=== PATIENT | male | born 2000 | race Caucasian/White ===

== ENCOUNTER 2021-10-26 21:23 | Emergency (ER) | payer BC, OTHER ==
[~2021-10-26] VITALS: Ht 172.7 cm; Wt 68.0 kg
[2021-10-26 21:42] LABS: BILIRUBIN,URINE NEGATIVE (NEGATIVE); CLARITY,URINE CLOUDY; COLOR,URINE RED; GLUCOSE, URINE (UA) NEGATIVE (NEGATIVE); KETONES,URINE NEGATIVE (NEGATIVE); LEUKOCYTE ESTERASE ,URINE NEGATIVE (NEGATIVE); NITRITE,URINE NEGATIVE (NEGATIVE); PH,URINE 8.5 (5-9); PROTEIN,URINE TRACE (NEGATIVE)
[2021-10-26] MEDS ORDERED: NS IV 1000 ML 1,000 ML IV STA (21:46)
--- NOTE | 2021-10-26 21:55 | ED GU-Male ---
General Chief Complaint: - Reproductive Stated Complaint: BLOOD IN URINE Nursing Triage Note: PT AMB TO RM 5 W REPORTS OF BLOOD IN URINE SX YESTERDAY MORNING. PT DENIES PAIN AT THIS TIME, REPORTS HE HAD A MILD ACHE IN LEFT FLANK ON AND OFF YESTERDAY. A&OX4. Source: patient Exam Limitations: no limitations History of Present Illness Date Seen by Provider: Oct 26, 2021 Time Seen by Provider: 21:40 Initial Comments Here with report of blood in his urine since this morning. He did have some left flank pain intermittently yesterday. Father has history of kidney stones. He has not had anything like this before. Denies fever chills or other injuries that would cause blood in his urine. This persisted so they came here for further evaluation. He has not had anything for pain nor wants anything currently as his pain is not noticeable currently. Timing/Duration: yesterday, getting worse, intermittent Severity/Quality: mild, aching Location: left flank Radiation: none Activities at Onset: none Sexual [place] History: not active Modifying Factors: Improves With Resting; Worsens With Urinating Associated Symptoms: No abdominal pain, No dysuria, No fever/chills, No nausea/vomiting, No urinary frequency Allergies and Home Medications Allergies Coded Allergies: No Known Drug Allergies (Unverified , 10/26/21) Patient Home Medication List Home Medication List Reviewed: Yes Cephalexin (Cephalexin) 500 Mg Tablet, 500 MG PO BID Prescribed by: OVIDIO HUSAIN on 10/26/21 8489 Tamsulosin HCl (Flomax) 0.4 Mg Cap, 0.4 MG PO DAILY Prescribed by: OVIDIO HUSAIN on 10/26/21 5727 Review of Systems Review of Systems Constitutional: see HPI; No chills, No fever EENTM: No nose congestion, No throat pain Respiratory: No cough, No short of breath Cardiovascular: no symptoms reported Gastrointestinal: No nausea, No vomiting Genitourinary: flank pain, hematuria Musculoskeletal: no symptoms reported Skin: no symptoms reported All Other Systemes Reviewed Negative Unless Noted: Yes Past Zylypcz-Xzptbu-Bhsqor Hx Patient Social History Tobacco Use?: No Use of E-Cig and/or Vaping dev: No Substance use?: No Alcohol Use?: No Immunizations Up To Date Influenza Vaccine Up-to-Date: No; Not Current First/Initial COVID19 Vaccinat: NONE Second COVID19 Vaccination Noe: NONE Third COVID19 Vaccination Date: NONE COVID19 Vaccine Oyster Cultivator: NONE Past Medical History Surgeries: No Respiratory: No Cardiac: No Neurological: No Genitourinary: No Gastrointestinal: No Family Medical History Reviewed Nursing Family Hx Other Conditions/Hx (Kidney stones) Physical Exam Vital Signs Vital Signs - First Documented 10/26/21 21:30 Temp 36.5 Pulse 62 Resp 20 B/P (MAP) 141/86 (104) Pulse Ox 100 O2 Delivery Room Air Capillary Refill : Less Than 3 Seconds Height, Weight, BMI Height: '" Weight: lbs. oz. kg; 22.00 BMI Method: General Appearance: WD/WN, no apparent distress HEENT: PERRL/EOMI, pharynx normal Neck: full range of motion, supple Cardiovascular: regular rate, rhythm, no murmur Respiratory: lungs clear, normal breath sounds, no respiratory distress Gastrointestinal: non tender, soft Back: normal inspection, no CVA tenderness, no vertebral tenderness Neurologic/Psychiatric: alert, oriented x 3 Skin: normal color, warm/dry Progress/Results/Core Measures Suspected Sepsis SIRS Temperature: Pulse: 62 Respiratory Rate: 20 Laboratory Tests 10/26/21 21:50: White Blood Count 7.3 Blood Pressure 141 /86 Mean: 104 Laboratory Tests 10/26/21 21:50: Creatinine 0.87, Platelet Count 190, Total Bilirubin 0.9 Results/Orders Lab Results Laboratory Tests Test 10/26/21 21:30 10/26/21 21:50 Range/Units Urine Color RED H Urine Clarity CLOUDY Urine pH 8.5 5-9 Urine Specific [place] 1.020 1.016-1.022 Urine Protein TRACE H NEGATIVE Urine Glucose (UA) NEGATIVE NEGATIVE Urine Ketones NEGATIVE NEGATIVE Urine Nitrite NEGATIVE NEGATIVE Urine Bilirubin NEGATIVE NEGATIVE Urine Urobilinogen 1.0 < = 1.0 MG/DL Urine Leukocyte Esterase NEGATIVE NEGATIVE Urine RBC (Auto) 3+ H NEGATIVE Urine RBC >100 H /HPF Urine WBC 0-2 /HPF Urine Crystals PRESENT H /LPF Urine Amorphous Sediment FEW MARGARITO PHOSPHATE H /LPF Urine Bacteria NEGATIVE /HPF Urine Casts NONE /LPF Urine Mucus NEGATIVE /LPF Urine Culture Indicated NO White Blood Count 7.3 4.3-11.0 10^3/uL Red Blood Count 5.00 4.30-5.52 10^6/uL Hemoglobin 15.3 13.3-17.7 g/dL Hematocrit 45 40-54 % Mean Corpuscular Volume 89 80-99 fL Mean Corpuscular Hemoglobin 31 25-34 pg Mean Corpuscular Hemoglobin Concent 34 32-36 g/dL Red Cell Distribution Width 11.9 10.0-14.5 % Platelet Count 190 130-400 10^3/uL Mean Platelet Volume 12.0 9.0-12.2 fL Immature Granulocyte % (Auto) 0 % Neutrophils (%) (Auto) 49 42-75 % Lymphocytes (%) (Auto) 41 12-44 % Monocytes (%) (Auto) 9 0-12 % Eosinophils (%) (Auto) 1 0-10 % Basophils (%) (Auto) 1 0-10 % Neutrophils # (Auto) 3.5 1.8-7.8 10^3/uL Lymphocytes # (Auto) 3.0 1.0-4.0 10^3/uL Monocytes # (Auto) 0.6 0.0-1.0 10^3/uL Eosinophils # (Auto) 0.1 0.0-0.3 10^3/uL Basophils # (Auto) 0.1 0.0-0.1 10^3/uL Immature Granulocyte # (Auto) 0.0 0.0-0.1 10^3/uL Sodium Level 140 135-145 MMOL/L Potassium Level 4.0 3.6-5.0 MMOL/L Chloride Level 104 98-107 MMOL/L Carbon Dioxide Level 23 21-32 MMOL/L Anion Gap 13 5-14 MMOL/L Blood Urea Nitrogen 9 7-18 MG/DL Creatinine 0.87 0.60-1.30 MG/DL Estimat Glomerular Filtration Rate 127 BUN/Creatinine Ratio 10 Glucose Level 85 70-105 MG/DL Calcium Level 10.0 8.5-10.1 MG/DL Corrected Calcium 8.5-10.1 MG/DL Total Bilirubin 0.9 0.1-1.0 MG/DL Aspartate Amino Transf (AST/SGOT) 18 5-34 U/L Alanine Aminotransferase (ALT/SGPT) 14 0-55 U/L Alkaline Phosphatase 93 40-136 U/L Total Protein 7.9 6.4-8.2 GM/DL Albumin 4.9 H 3.2-4.5 GM/DL My Orders Orders - RODRIGUE,OVIDIO D MD Cbc With Automated Diff (10/26/21 21:46) Comprehensive Metabolic Panel (10/26/21 21:46) Ct Abd/Pelvis Wo(Kidney Stone) (10/26/21 21:46) Ns Iv 1000 Ml (Sodium Chloride 0.9%) (10/26/21 21:46) Ed Iv/Invasive Line Start (10/26/21 21:46) Abdomen/Kub 1view (10/26/21 23:17) Vital Signs/I&O 10/26/21 21:30 Temp 36.5 Pulse 62 Resp 20 B/P (MAP) 141/86 (104) Pulse Ox 100 O2 Delivery Room Air Capillary Refill : Less Than 3 Seconds Blood Pressure Mean: 104 Progress Note : Progress Note Seen and evaluated. IV and labs ordered. Normal saline 1 L bolus. Patient declined pain medicine. We will get CT abdomen of the pelvis to evaluate for hematuria with concerns towards kidney stone. Monitor patient. 2315: CT does show kidney stone. We will get KUB per urology protocol. Pain is still contro lled without pain reliever. I did discuss with him regarding follow-up. Discharged home with return precautions. Patient and family verbalized understanding instructions and agreement with plan. Diagnostic Imaging Diagonstic Imaging: CT Plain Films/CT/US/NM/MRI: abdomen, pelvis Comments [facility]. [place], [place] NAME: AUSTIN MARTIN [facility] REC#: [id number] PT STATUS: REG ER : 2000 PHYSICIAN: OVIDIO HUSAIN MD ADMIT DATE: 10/26/21/ER Signed Date of Exam:10/26/21 CT ABD/PELVIS WO(KIDNEY STONE) PROCEDURE: CT urinary tract, rule out kidney stone. TECHNIQUE: Multiple contiguous axial images were obtained through the abdomen and pelvis without the use of intravenous contrast. Auto Exposure Controls were utilized during the CT exam to meet ALARA standards for radiation dose reduction. INDICATION: Flank pain, hematuria COMPARISON: None available. FINDINGS: The visualized lung bases are clear. The unenhanced liver and spleen are unremarkable. The adrenal glands are unremarkable. Pancreas is unremarkable. The gallbladder is unremarkable. The right kidney and right ureter are unremarkable. A 5 mm calculus is noted within the left ureteropelvic junction. No significant hydronephrosis. The remainder of the left ureter is unremarkable. No aneurysmal dilatation of the abdominal aorta. The urinary bladder is unremarkable. No bowel obstruction or pneumatosis. No evidence of acute appendicitis. No significant adenopathy, free air or free fluid within the abdomen or pelvis. No acute osseous abnormality. IMPRESSION: 1. 5 mm calculus within the left ureteropelvic junction without definitive hydronephrosis. 2. Otherwise, unremarkable examination. Dictated by: Dictated on workstation # [id number] Dict: 10/26/212229 Trans: 10/26/212236 [id number] Interpreted by: ERIBERTO TOSCANO MD Electronically signed by: ERIBERTO TOSCANO MD 10/26/212236 Departure Impression Primary Impression: Left ureteral stone Additional Impression: Hematuria Qualified Codes: R31.0 - Gross hematuria Disposition: HOME, SELF-CARE Condition: Improved Departure-Patient Inst. Decision time for Depature: 23:31 Referrals: NO,LOCAL PHYSICIAN (PCP) Primary Care Physician HENRY RODRIGUEZ MD Patient Instructions: Kidney Stone, Adult ED, Blood in the Urine (Hematuria), Adult (DC) Add. Discharge Instructions: All discharge instructions reviewed with patient and/or family. Voiced understanding. Drink plenty of fluids. Follow-up with Dr. Rodriguez for recheck and further evaluation. Strain urine with every urination until stone captured. You may take ibuprofen 600 mg every 8 hours as needed for pain. You may also take Tylenol/acetaminophen 1000 mg every 8 hours as needed for pain. Take your medications as directed. Return for worse pain, grossly bloody urine, fever, weakness, breathing problems or other concerns as needed. Scripts Tamsulosin HCl (Flomax) 0.4 Mg Cap 0.4 MG PO DAILY for 14 Days, #14 CAP Prov: OVIDIO HUSAIN MD 10/26/21 Cephalexin (Cephalexin) 500 Mg Tablet 500 MG PO BID, #14 TAB 0 Refills Prov: OVIDIO HUSAIN MD 10/26/21 Copy Copies To 1: HENRY RODRIGUEZ MD, TIMOTHY D MD Oct 26, 2021 21:55
[2021-10-26 21:58] LABS: BASOPHILS # (AUTO) 0.1 10^3/uL (0.0-0.1); BASOPHILS % (AUTO) 1 % (0-10); EOSINOPHILS # (AUTO) 0.1 10^3/uL (0.0-0.3); EOSINOPHILS % (AUTO) 1 % (0-10); HEMATOCRIT 45 % (40-54); HEMOGLOBIN 15.3 g/dL (13.3-17.7); LYMPHOCYTES % (AUTO) 41 % (12-44); MEAN CORPUSCULAR HEMOGLOBIN 31 pg (25-34); MEAN CORPUSCULAR HGB CONC 34 g/dL (32-36); MEAN CORPUSCULAR VOLUME 89 fL (80-99); MONOCYTES # (AUTO) 0.6 10^3/uL (0.0-1.0); MONOCYTES % (AUTO) 9 % (0-12); NEUTROPHILS # (AUTO) 3.5 10^3/uL (1.8-7.8); NEUTROPHILS % (AUTO) 49 % (42-75); PLATELET COUNT 190 10^3/uL (130-400); WHITE BLOOD COUNT 7.3 10^3/uL (4.3-11.0)
[2021-10-26 21:59] LABS: AMORPHOUS SEDIMENT,UR FEW AMOR PHOSPHATE /LPF; BACTERIA,URINE NEGATIVE /HPF; RBC,URINE >100 /HPF; WBC,URINE 0-2 /HPF
[2021-10-26 22:09] LABS: ALBUMIN 4.9 GM/DL (3.2-4.5); CHLORIDE 104 MMOL/L (98-107); SODIUM 140 MMOL/L (135-145)
[2021-10-26 22:11] LABS: GLUCOSE 85 MG/DL (70-105); TOTAL PROTEIN 7.9 GM/DL (6.4-8.2)
[2021-10-26 22:12] LABS: CARBON DIOXIDE 23 MMOL/L (21-32)
[2021-10-26 22:13] LABS: BILIRUBIN,TOTAL 0.9 MG/DL (0.1-1.0)
[2021-10-26 22:15] LABS: ALKALINE PHOSPHATASE 93 U/L (40-136); CREATININE SERUM 0.87 MG/DL (0.60-1.30); GFR ESTIMATED 127
[2021-10-26 22:16] LABS: BUN/CREATININE RATIO 10
[2021-10-26 22:18] LABS: ALANINE AMINOTRANSFERASE 14 U/L (0-55)
--- NOTE | 2021-10-26 22:35 | Diagnostic Imaging Report ---
PROCEDURE: CT urinary tract, rule out kidney stone. TECHNIQUE: Multiple contiguous axial images were obtained through the abdomen and pelvis without the use of intravenous contrast. Auto Exposure Controls were utilized during the CT exam to meet ALARA standards for radiation dose reduction. INDICATION: Flank pain, hematuria COMPARISON: None available. FINDINGS: The visualized lung bases are clear. The unenhanced liver and spleen are unremarkable. The adrenal glands are unremarkable. Pancreas is unremarkable. The gallbladder is unremarkable. The right kidney and right ureter are unremarkable. A 5 mm calculus is noted within the left ureteropelvic junction. No significant hydronephrosis. The remainder of the left ureter is unremarkable. No aneurysmal dilatation of the abdominal aorta. The urinary bladder is unremarkable. No bowel obstruction or pneumatosis. No evidence of acute appendicitis. No significant adenopathy, free air or free fluid within the abdomen or pelvis. No acute osseous abnormality. IMPRESSION: 1. 5 mm calculus within the left ureteropelvic junction without definitive hydronephrosis. 2. Otherwise, unremarkable examination. Dictated by: Dictated on workstation # [id number]
[2021-10-26] MEDS ORDERED: TMSL.4C PO (23:35)
[2021-10-26] MEDS ORDERED: CEPH500T PO (23:35)
[2021-10-26 23:58] VITALS: BP 123/72
--- NOTE | 2021-10-27 07:48 | Diagnostic Imaging Report ---
INDICATION: Left flank pain, abdominal pain. TECHNIQUE: Single supine view of the abdomen 11:34 PM CORRELATION STUDY: None FINDINGS: There is gas within loops of small bowel as well as colon. Currently nonspecific. Mild stool retention. No definitive pathologic intraabdominal calcifications but smaller calcifications could easily go undetected on this study. Visualized osseous structures are unremarkable apart from spina bifida occulta defect at S1. IMPRESSION: 1. Diffuse mild gas distention throughout the majority of the gastrointestinal tract. Could reflect potential ileus. High degree obstruction does not produce suggested. The known left UPJ calcification is not visualized on this study, likely obscured by the bowel gas. Dictated by: Dictated on workstation # [id number]
== END 2021-10-26 23:58 | disposition home or self-care (01) ==
LOC: ER 21:27
DX: N20.1 Calculus of ureter (principal)
CPT/HCPCS: 36415; 74018; 74176; 80053; 81000; 85025; 96360; 96361

== ENCOUNTER 2021-12-03 13:51 | Emergency (ER) | payer BC ==
[~2021-12-03] VITALS: Ht 172 cm; Wt 63.0 kg
[~2021-12-03 13:51] MED LIST: CEPH500T PO; TMSL.4C PO
[2021-12-03 14:00] VITALS: BP 138/60
--- NOTE | 2021-12-03 14:25 | ED Back Pain ---
General Chief Complaint: General Problems/Pain Stated Complaint: BACK PAIN / VOMITING Nursing Triage Note: ARRIVED VIA AMB TO ROOM 09 WITH COMPLAINTS OF SEVERE RIGHT SIDED FLANK PAIN THIS MORNING THAT WAS RELIEVED AFTER HE VOMITED. DENIES PAIN OR NAUSEA AT THIS TIME. RECENT HX OF A KIDNEY STONE. Source of Information: Patient Exam Limitations: No Limitations (RACHID CANO MED STUDENT) History of Present Illness Date Seen by Provider: Dec 03, 2021 Time Seen by Provider: 14:20 Initial Comments Mr Castro is a 20 yo male with PMH of kidney stones 3 weeks ago that presents today for L Lateral lumbar back pain and vomiting. He states that the pain started this morning and he was not able to get comfortable in bed. He states the pain began to get a lot worse when he got up and started walking around. He tried to take some ibuprofen for the pain but he threw up a little after taking it. He has only had the single episode of emesis. He was in the ED about 3 weeks ago and was noted to have a 5mm stone on CT. At the time he did not have any pain but was having philly hematuria. He states that he didn't have nay pain last time so this time is a bit different. He was given a strainer to urinate through and states that the only thing he got was a little bit of sediment, not a true stone. As far as he knows he isnt 100% sure it is passed. He has been urinating about the same amount as usual as far as he can tell. Does not report any other symptoms other than the ones described above. ROS + Vomiting, L sided Flank pain - Fever, chill, headache, vision changes, nausea, chest pain, palpatations, SOB, abdominal pain, Changes in bowel or bladder function, rashes, or swelling (RACHID CANO MED STUDENT) Allergies and Home Medications Allergies Coded Allergies: No Known Drug Allergies (Unverified , 10/26/21) Patient Home Medication List Home Medication List Reviewed: Yes (YOCASTA CASON MD) Cephalexin (Cephalexin) 500 Mg Tablet, 500 MG PO BID Prescribed by: OVIDIO HUSAIN on 10/26/21 1475 Cephalexin (Cephalexin) 500 Mg Tablet, 500 MG PO BID Prescribed by: YOCASTA SHORT on 12/03/21 1626 Hydrocodone/Acetaminophen (Hydrocodone-Acetamin 5-325 mg) 1 Each Tablet, 1 TAB PO Q4H PRN for PAIN-MODERATE (5-7) Prescribed by: YOCASTA SHORT on 12/03/21 162 Ondansetron (Ondansetron Odt) 4 Mg Tab.rapdis, 4 MG PO Q4H PRN for NAUSEA/VOMITING Prescribed by: YOCASTA SHORT on 12/03/21 162 Tamsulosin HCl (Flomax) 0.4 Mg Cap, 0.4 MG PO DAILY Prescribed by: OVIDIO HUSAIN on 10/26/21 2335 Tamsulosin HCl (Flomax) 0.4 Mg Cap, 0.4 MG PO DAILY Prescribed by: YOCASTA SHORT on 12/03/21 162 Review of Systems Constitutional: see HPI EENTM: see HPI Respiratory: see HPI Cardiovascular: see HPI Gastrointestinal: see HPI Genitourinary: see HPI Musculoskeletal: see HPI Skin: see HPI Psychiatric/Neurological: See HPI (RACHID CANO STUDENT) Past Nyydchw-Doehzc-Mrhpiy Hx Patient Social History Tobacco Use?: No Use of E-Cig and/or Vaping Bobby: Never a User Substance use?: No Alcohol Use?: No (RACHID CANO STUDENT) Immunizations Up To Date First/Initial COVID19 Vaccinat: NONE Second COVID19 Vaccination Noe: NONE Third COVID19 Vaccination Date: NONE (RACHID CANO STUDENT) Past Medical History Surgeries: No Respiratory: No Cardiac: No Neurological: No Genitourinary: Yes Kidney Stones (5mm) Gastrointestinal: No (RACHID CANO STUDENT) Family Medical History Other Conditions/Hx (RACHID CANO STUDENT) Physical Exam Vital Signs Vital Signs - First Documented 12/03/21 14:00 Temp 36.3 Pulse 66 Resp 16 B/P (MAP) 138/60 (86) Pulse Ox 100 O2 Delivery Room Air (YOCASTA CASON MD) Vital Signs Capillary Refill : Less Than 3 Seconds (RACHID CANO STUDENT) Height, Weight, BMI Height: '" Weight: lbs. oz. kg; 21.00 BMI Method: General Appearance: No Apparent Distress, WD/WN HEENT: PERRL/EOMI Neck: Supple Cardiovascular: Regular Rate, Rhythm, No Edema, No Murmur, Normal Peripheral Pulses Respiratory: Chest Non Tender, Lungs Clear, Normal Breath Sounds, No Accessory Muscle Use, No Respiratory Distress Peripheral Pulses: 2+ Radial Pulses (R), 2+ Radial Pulses (L) Gastrointestinal: Normal Bowel Sounds, Non Tender, Soft Back: CVA Tenderness (L) (Mild to moderate) Extremity: Non Tender, No Calf Tenderness, No Pedal Edema Neurologic/Psychiatric: Alert, Oriented x3, Normal Mood/Affect Skin: Normal Color, Warm/Dry (JEROMERACHID MED STUDENT) Progress/Results/Core Measures Results/Orders Lab Results Laboratory Tests Test 12/03/21 15:15 Range/Units White Blood Count 11.2 H 4.3-11.0 10^3/uL Red Blood Count 4.81 4.30-5.52 10^6/uL Hemoglobin 15.1 13.3-17.7 g/dL Hematocrit 44 40-54 % Mean Corpuscular Volume 92 80-99 fL Mean Corpuscular Hemoglobin 31 25-34 pg Mean Corpuscular Hemoglobin Concent 34 32-36 g/dL Red Cell Distribution Width 12.0 10.0-14.5 % Platelet Count 180 130-400 10^3/uL Mean Platelet Volume 11.7 9.0-12.2 fL Immature Granulocyte % (Auto) 0 % Neutrophils (%) (Auto) 82 H 42-75 % Lymphocytes (%) (Auto) 12 12-44 % Monocytes (%) (Auto) 6 0-12 % Eosinophils (%) (Auto) 0 0-10 % Basophils (%) (Auto) 0 0-10 % Neutrophils # (Auto) 9.2 H 1.8-7.8 X 10^3 Lymphocytes # (Auto) 1.3 1.0-4.0 X 10^3 Monocytes # (Auto) 0.6 0.0-1.0 X 10^3 Eosinophils # (Auto) 0.0 0.0-0.3 10^3/uL Basophils # (Auto) 0.0 0.0-0.1 10^3/uL Immature Granulocyte # (Auto) 0.0 0.0-0.1 10^3/uL Urine Color YAHIR H Urine Clarity SL CLOUDY Urine pH 7.5 5-9 Urine Specific [place] 1.025 H 1.016-1.022 Urine Protein 1+ H NEGATIVE Urine Glucose (UA) NEGATIVE NEGATIVE Urine Ketones NEGATIVE NEGATIVE Urine Nitrite NEGATIVE NEGATIVE Urine Bilirubin 1+ H NEGATIVE Urine Urobilinogen 1.0 < = 1.0 MG/DL Urine Leukocyte Esterase NEGATIVE NEGATIVE Urine RBC (Auto) 3+ H NEGATIVE Urine RBC >100 H /HPF Urine WBC NONE /HPF Urine Squamous Epithelial Cells NONE /HPF Urine Renal Epithelial Cells NONE /HPF Urine Crystals NONE /LPF Urine Bacteria NEGATIVE /HPF Urine Casts NONE /LPF Urine Mucus NEGATIVE /LPF Urine Culture Indicated NO Sodium Level 139 135-145 MMOL/L Potassium Level 4.5 3.6-5.0 MMOL/L Chloride Level 105 98-107 MMOL/L Carbon Dioxide Level 25 21-32 MMOL/L Anion Gap 9 5-14 MMOL/L Blood Urea Nitrogen 10 7-18 MG/DL Creatinine 0.84 0.60-1.30 MG/DL Estimat Glomerular Filtration Rate 129 BUN/Creatinine Ratio 12 Glucose Level 105 70-105 MG/DL Calcium Level 10.1 8.5-10.1 MG/DL (YOCASTA CASON MD) My Orders Orders - YOCASTA CASON MD Basic Metabolic Panel (12/03/21 14:34) Cbc With Automated Diff (12/03/21 14:34) Ua Culture If Indicated (12/03/21 14:34) Ed Iv/Invasive Line Start (12/03/21 14:34) Lactated Ringers (Lr 1000 Ml Iv Solution (12/03/21 14:45) Ketorolac Injection (Toradol Injection) (12/03/21 14:45) Abdomen/Kub 1view (12/03/21 14:34) (YOCASTA CASON MD) Medications Given in ED (YOCASTA CASON MD) Vital Signs/I&O 12/03/21 14:00 Temp 36.3 Pulse 66 Resp 16 B/P (MAP) 138/60 (86) Pulse Ox 100 O2 Delivery Room Air (YOCASTA CASON MD) Blood Pressure Mean: 86 Departure Impression Primary Impression: Left ureteral stone Disposition: 01 HOME, SELF-CARE Condition: Improved Departure-Patient Inst. Decision time for Depature: 16:10 (YOCASTA CASON MD) Referrals: NO,LOCAL PHYSICIAN (PCP) Primary Care Physician HENRY RODRIGUEZ MD Patient Instructions: Kidney Stone, Adult ED Add. Discharge Instructions: Drink plenty of clear liquids. Strain your urine and bring any stones collected to your follow-up appointment. Use Zofran as prescribed for nausea and vomiting. Use hydrocodone as prescribed for pain. You should not drive or operate machinery while on hydrocodone. Follow-up with Dr. Rodriguez or the urologist of your choice as soon as possible. Please call tomorrow for an appointment. Call with questions or concerns. Return to the ER if you have worsening symptoms. All discharge instructions reviewed with patient and/or family. Voiced understanding. Scripts Tamsulosin HCl (Flomax) 0.4 Mg Cap 0.4 MG PO DAILY, #30 CAP Prov: YOCASTA CASON MD 12/03/21 Cephalexin (Cephalexin) 500 Mg Tablet 500 MG PO BID, #30 TAB Prov: YOCASTA CASON MD 12/03/21 Ondansetron (Ondansetron Odt) 4 Mg Tab.rapdis 4 MG PO Q4H PRN for NAUSEA/VOMITING, #10 TAB 1 Refill Prov: YOCASTA CASON MD 12/03/21 Hydrocodone/Acetaminophen (Hydrocodone-Acetamin 5-325 mg) 1 Each Tablet 1 TAB PO Q4H PRN for PAIN-MODERATE (5-7), #15 TAB Prov: YOCASTA CASON MD 12/03/21 Work/School Note: Work Release Form Date Seen in the Emergency Department: Dec 03, 2021 Return to Work: Dec 04, 2021 Other Restrictions Listed Below: May have intermittent severe pain and may require pain medication. Restrictions: Pain that may prohibit work or require leaving work early at times. Medical Student Attestation and Attending Note: I have personally interviewed and examined this patient along with LOLI Jimenez. I have reviewed student documentation including history, physical, and assessments. I agree with the documentation except where otherwise noted. Exam: General: Alert, oriented, mild acute distress, well developed HEENT: Normocephalic and atraumatic Heart: Regular rate and rhythm without murmur Lungs: Clear to auscultation bilaterally with normal effort Abdomen: Soft, mild left-sided abdominal tenderness, nondistended, normal bowel sounds Back: Left CVA tenderness Neuropsych: Alert, oriented, no focal deficits Skin: Warm and dry without rashes Patient had intended to follow-up with Dr. Rodriguez. That follow-up was delayed due to inclement winter weather. They will contact his office again and try to follow-up as soon as possible. See discharge instructions for further discussion. (YOCASTA CASON MD) Copy Copies To 1: HENRY RODRIGUEZ MDAMRACHID MED STUDENT Dec 03, 2021 14:25 YOCASTA CASON MD Dec 03, 2021 16:29
[2021-12-03] MEDS ORDERED: LACTATED RINGERS 1,000 ML IV ONE (14:45)
[2021-12-03] MEDS ORDERED: KETOROLAC 30 MG/ML VIAL IVP ONE (14:45)
--- NOTE | 2021-12-03 14:55 | Diagnostic Imaging Report ---
INDICATION: Severe right-sided flank pain. COMPARISON: 10/26/2021 FINDINGS: Single frontal supine radiograph view of the abdomen was obtained. 7 mm calculus is identified projecting over the left L3 transverse process. This could represent migration of stone seen at the left UPJ on recent CT dated 10/26/2021. No unexpected radiopaque foreign bodies are seen. Small bowel loops are nondistended. There is no large collection of free intraperitoneal air. Osseous structures show no gross acute abnormality. IMPRESSION: 1. Nonobstructed small bowel gas pattern. 2. Findings suspicious for migration of left ureteral calculus. Dictated by: Dictated on workstation # [id number]
[2021-12-03 15:25] LABS: BASOPHILS % (AUTO) 0 % (0-10); EOSINOPHILS % (AUTO) 0 % (0-10); HEMATOCRIT 44 % (40-54); HEMOGLOBIN 15.1 g/dL (13.3-17.7); LYMPHOCYTES # (AUTO) 1.3 X 10^3 (1.0-4.0); LYMPHOCYTES % (AUTO) 12 % (12-44); MEAN CORPUSCULAR HEMOGLOBIN 31 pg (25-34); MEAN CORPUSCULAR HGB CONC 34 g/dL (32-36); MEAN CORPUSCULAR VOLUME 92 fL (80-99); MEAN PLATELET VOLUME 11.7 fL (9.0-12.2); MONOCYTES # (AUTO) 0.6 X 10^3 (0.0-1.0); MONOCYTES % (AUTO) 6 % (0-12); NEUTROPHILS # (AUTO) 9.2 X 10^3 (1.8-7.8); NEUTROPHILS % (AUTO) 82 % (42-75); PLATELET COUNT 180 10^3/uL (130-400); WHITE BLOOD COUNT 11.2 10^3/uL (4.3-11.0)
[2021-12-03 15:30] LABS: CLARITY,URINE SL CLOUDY; COLOR,URINE AMBER; GLUCOSE, URINE (UA) NEGATIVE (NEGATIVE); KETONES,URINE NEGATIVE (NEGATIVE); LEUKOCYTE ESTERASE ,URINE NEGATIVE (NEGATIVE); NITRITE,URINE NEGATIVE (NEGATIVE); PH,URINE 7.5 (5-9); PROTEIN,URINE 1+ (NEGATIVE)
[2021-12-03 15:41] LABS: BACTERIA,URINE NEGATIVE /HPF; RBC,URINE >100 /HPF
[2021-12-03 15:42] LABS: BILIRUBIN,URINE 1+ (NEGATIVE)
[2021-12-03 15:46] LABS: POTASSIUM 4.5 MMOL/L (3.6-5.0)
[2021-12-03 15:47] LABS: CALCIUM 10.1 MG/DL (8.5-10.1)
[2021-12-03 15:51] LABS: CREATININE SERUM 0.84 MG/DL (0.60-1.30)
[2021-12-03] MEDS ORDERED: TMSL.4C PO (16:26)
[2021-12-03] MEDS ORDERED: ACHD5005 PO (16:26)
[2021-12-03] MEDS ORDERED: CEPH500T PO (16:26)
[2021-12-03] MEDS ORDERED: ONDA4TAB11 PO (16:26)
== END 2021-12-03 16:41 | disposition home or self-care (01) ==
LOC: EDUNIT# 13:51 → ER 13:52
DX: N20.1 Calculus of ureter (principal)
CPT/HCPCS: 36415; 74018; 80048; 81000; 85025